=== PATIENT | female | born 1970 | race Caucasian/White ===

== ENCOUNTER 2019-03-30 15:50 | Inpatient (IN) | payer OTHER ==
[~2019-03-30] VITALS: Ht 165.1 cm; Wt 63.5 kg
[2019-04-07] MEDS ORDERED: EFFEXOR XR37.5 MG PO (09:56)
[2019-04-07] MEDS ORDERED: SYNTHROID112 MCG PO (09:57)
[2019-04-07] MEDS ORDERED: CLONAZEPAM1 M1 (09:57)
[2019-04-07] MEDS ORDERED: SEROQUEL50 MG PO (09:57)
== END 2019-04-15 14:38 | disposition home or self-care (01) | DRG 621 ==
LOC: SURG 04-14 08:15 → O/R 04-14 18:50 → SURH 04-14 19:31
PROVIDERS: ADMIT Plastic Surgery
PROC: 0J080ZZ Alteration of Abdomen Subcutaneous Tissue and Fascia, Open Approach (ICD-10-PCS; principal; 2019-04-14 12:15)
PROC: 0HBV0ZZ Excision of Bilateral Breast, Open Approach (ICD-10-PCS; 2019-04-14 12:15)
DX: E65 Localized adiposity (principal); N62 Hypertrophy of breast; R63.4 Abnormal weight loss; M62.08 Separation of muscle (nontraumatic), other site; Z98.84 Bariatric surgery status